=== PATIENT | female | born 1935 | race Caucasian/White ===

== ENCOUNTER 2016-09-26 09:30 | Inpatient (IN) ==
[2016-09-26 11:58] LABS: MANUAL DIFF NEEDED? NO
[2016-09-26 12:03] LABS: BASO% 0.4 % (0.0-0.8); EOS# 0.09 X1000 (0.0-0.7); EOS% 1.3 % (0.0-10.0); HEMATOCRIT 33.2 % (37.0-47.0); HEMOGLOBIN 10.8 g/dL (12.0-16.0); LYMPH# 1.89 X1000 (1.2-3.4); LYMPH% 27.8 % (20.5-51.1); MCHC 32.5 g/dL (33-37); MCV 98.2 FL (81-99); MONO# 0.55 X1000 (0.11-0.59); MONO% 8.1 % (1.7-9.3); MPV 8.9 FL (7.4-10.4); NEUT% 62.4 % (42.2-75.2); PLT 203 X1000 (130-400); RBC 3.38 XMIL (4.2-5.4)
[2016-09-26 12:07] LABS: PROTIME 10.5 Seconds (9.2-11.7); PTT 25.9 Seconds (22.0-36.0)
[2016-09-26 12:19] LABS: HEMOGLOBIN A1C 5.9 % (4.8-6.0)
[2016-09-26 12:43] LABS: CALCIUM 9.5 mg/dL (8.8-10.2)
[2016-09-26] MEDS: NS 1,000 ML IV SCH (14:32)
[2016-09-26] MEDS: PERCOCET-5 PO PRN ×2 (17:10→21:48)
[2016-09-27] MEDS: NS 1,000 ML IV SCH ×2 (04:54→22:23)
[2016-09-27] MEDS: PERCOCET-5 PO PRN (04:54)
[2016-09-27] MEDS ORDERED: VANCOMYCIN IV PER PHARMACY MISC SCH (08:15)
[2016-09-27] MEDS ORDERED: ROBAXIN PO PRN (08:35)
[2016-09-27 08:44] LABS: HEMOGLOBIN 10.3 g/dL (12.0-16.0); MCH 31.6 PG (27-31); MCHC 32.2 g/dL (33-37); MCV 98.2 FL (81-99); MPV 9.4 FL (7.4-10.4); RBC 3.26 XMIL (4.2-5.4)
--- NOTE | 2016-09-27 08:47 | PROGRESS NOTE ---
DATE: 09/27/2016 SUBJECTIVE: Ms. Mccloud is lying in bed this morning. Admitted her yesterday for irrigation and debridement today of this left foot. OBJECTIVE: Left lower extremity exam: Still has erythema all around the great toe. She has puncture site on the plantar aspect of the foot. It is very tender palpation around that area. ASSESSMENT: Left foreign body puncture wound to the forefoot with local cellulitis and possible abscess. PLAN: I plan on taking Mr. Mccloud to the OR today for left foot irrigation and debridement and packing. I went over with her the procedure, risks, benefits, and potential complications. Risks include, but are not limited to, infection, wound healing problems, damage to nerves, arteries, veins, numbness, continued pain, DVT, and discussed with the patient. She expressed understanding and wished to proceed. We will plan on getting this done today, hopefully around noon. She will remain NPO. cc: Edmar Hood MD
[2016-09-27 09:10] LABS: AGAP 11; BUN 23 mg/dL (8-22); CALCIUM 8.7 mg/dL (8.8-10.2); CHLORIDE 104 mmol/L (98-107); COSMO 285; IRON SATURATION 26 %; MAGNESIUM 1.9 mg/dL (1.5-2.7); POTASSIUM 4.3 mmol/L (3.5-5.1); SODIUM 141 mmol/L (136-145); TCO2 26 mmol/L (25-35); TIBC 242 ug/dL; TOTAL IRON 62 ug/dL (49-151); UNBOUND IRON 180 ug/dL (112-346)
--- NOTE | 2016-09-27 09:13 | CONSULTATION ---
DATE OF CONSULTATION: 09/27/2016 CONCLUSION: The patient stepped on a nail a week ago. She stepped on it with her left foot. She was wearing a rubber soled shoe that she had worn previously. She received a tetanus immunization. She has cellulitis of the left foot now. I think there is a possibility that she could have osteomyelitis as well. RECOMMENDATIONS: An x-ray of the foot has been ordered, and I have ordered a triple phase bone scan on the left foot. I plan to treat with a combination of vancomycin and Zosyn. DISCUSSION: The patient a week ago stepped on a nail. As was mentioned above, she was wearing a rubber soled shoe, which she has worn previously. Her foot became progressively more swollen and erythematous. The patient, after she stepped on the nail, had a tetanus booster shot. LABORATORY STUDIES: CBC with a white count of 6800, hemoglobin 10.8, and platelet count 203,000. Creatinine is 0.9. GFR is 60. The patient has an x-ray of the foot ordered, and I have ordered a triple phase bone scan. PAST MEDICAL HISTORY/REVIEW OF SYSTEMS: Eyes and Ears: She denies difficulty hearing or seeing. Neck: No meningismus. Respiratory: No cough or shortness of breath. Cardiac: No chest pain or palpitations. Gastrointestinal: No nausea, vomiting, or diarrhea. Genitourinary: No dysuria or flank pain. Bones, Joints, Muscles: Her left foot now is swollen and erythematous and painful, but she does not have any joints that are swollen, and she has not had any myalgias. Neurologic: No seizures or loss of motor or sensory function. Integument: No rash. Endocrine: The patient is diabetic, and she has hypothyroidism. Hematologic: No history of anemia or bleeding tendency. The remainder of the patient's review of systems was completed and was negative. SHAREPOINT WEB DEVELOPER HISTORY: She is a 3, para 3, AB 0. She has had a hysterectomy and bilateral salpingo-oophorectomy for cancer of the cervix. PREVIOUS HOSPITALIZATIONS AND OPERATIONS: She has had labor and deliveries, a total abdominal hysterectomy with bilateral salpingo-oophorectomy. She has had facial surgery, a laminectomy, and a cholecystectomy. MEDICAL DISEASES: Positive for diabetes mellitus, hypertension, and cancer of the cervix. INFECTIOUS DISEASE HISTORY: Positive for UTI. Negative for pneumonia. FAMILY HISTORY: Positive for diabetes mellitus, hypertension, myocardial infarction, cancer, and 1 member of the patient's family is blind. [place]IAL HISTORY[place] She is allergic to Keflex, manifested by itching, but she tolerates penicillin well. She is . She has cats and dogs for pets. The patient also has tolerated amoxicillin well. HOME MEDICATIONS: Synthroid, amoxicillin, lisinopril/hydrochlorothiazide, calcium, tramadol, metformin, vitamin B12, Robaxin, Zantac, Neurontin, vitamin D, meloxicam, and aspirin. PHYSICAL EXAMINATION: Vital Signs: Temperature is 98.3 degrees, pulse 62, respirations 18, blood pressure 120/60. Patient's weight is listed as 181 pounds. General: This is an obese, elderly female. She is in no acute distress. Head, Eyes, Ears, Nose, and Throat: She can hear my spoken words and see near objects. No drainage noted from the nose or ears. She does not have any white patches in her mouth. Neck: No meningismus. Lungs: Clear to auscultation. Cardiovascular: Regular heart rate. Peripheral pulses are palpable. Abdomen: Soft and nontender. Extremities: The patient's left foot had plantar erythema, swelling, and tenderness. There was no drainage coming from the foot. Neurologic: Patient is awake. She can move her extremities. There is no tremor. Her sensation is intact to touch. Her memory, as regarding her medical condition, is intact. Integument: No rash noted. Please see my description of the patient's foot done earlier. Thank you for the consult. cc: MD Edmar Garcia MD
[2016-09-27 09:16] LABS: HEMOGLOBIN A1C 5.8 % (4.8-6.0)
[2016-09-27 09:22] LABS: FERRITIN 140 ng/mL (13-150)
--- NOTE | 2016-09-27 09:24 | CONSULTATION ---
DATE OF CONSULTATION: 09/27/2016 CONSULTING PHYSICIAN: Dr. Edmar Hood. CONSULTING REGION: Medical management. HISTORY OF PRESENT ILLNESS: Ms. Mccloud is a very pleasant, 81-year-old female with a history of hypertension and diabetes mellitus, who stepped on a nail on September 19. Since that time, she has had worsening pain and swelling of her left foot. She went to her primary care provider who gave her a tetanus shot and oral antibiotics. However, her left foot has continued to swell. She reports chills, but no fever, and no other symptoms. Review of systems did reveal that she reports occasional chest pain, midsternal and nonradiating when she exerts herself. She also has dyspnea with exertion and occasional lower extremity edema. When asked if she has ever had a cardiac evaluation, she reports she has had a negative stress test multiple years ago. She denies any chest pain at rest. Laboratory data done yesterday by orthopedics does not reveal anything acute. Currently her vitals are stable and she is resting in bed without distress noted. PAST MEDICAL HISTORY: 1. Diabetes mellitus type 2. 2. Hypertension. 3. Osteoarthritis. 4. Hypothyroidism. 5. Diverticulosis/diverticulitis and cervical cancer. PAST SURGICAL HISTORY: Cholecystectomy, hysterectomy, lumbar spine fusion, hysterectomy, facial reconstruction. SOCIAL HISTORY: Patient denies tobacco, alcohol or drug use. She is and lives in [place]. FAMILY HISTORY: Noncontributory. REVIEW OF SYSTEMS: A 14 point review of systems was obtained and found to be negative with the exception of the HPI. ALLERGIES: Keflex. HOME MEDICATIONS: 1. Amoxicillin 1000 mg p.o. b.i.d. 2. Aspirin 81 mg daily. 3. Calcium magnesium 1 daily. 4. Vitamin B 12 1000 mcg daily. 5. Vitamin D 2 400 units daily. 6. Neurontin 300 mg p.o. t.i.d. 7. Synthroid 50 mcg daily. 8. Lisinopril/hydrochlorothiazide 10/12.5 one daily. 9. Mobic 7.5 mg at bedtime. 10. Glucophage 500 mg daily. 11. Robaxin 500 mg p.o. t.i.d. as needed. 12. Zantac 150 mg p.o. daily. 13. Ultram 50 mg p.o. q. 6 hours as needed. PHYSICAL EXAMINATION: Vital Signs: Blood pressure is 120/60, heart rate 62, respiratory rate 18, O2 saturation 99% on room air. Temperature is 98.3 degrees. General: Elderly female lying in hospital bed in no acute distress. Neurologic: The patient is awake, alert and oriented. She follows commands without focal deficits. HEENT: Head is atraumatic and normocephalic. Pupils are equal, round, reactive to light. Oral mucosa is moist. Oropharynx is clear. Neck: Supple. Trachea is midline. No JVD. Chest: Clear to auscultation bilaterally. CV: Regular rate and rhythm. S1 and S2 is noted. No murmurs, gallops, clicks , rubs. GI: Soft, nondistended, nontender. Bowel sounds are positive. Extremities: No edema, clubbing or cyanosis. Left foot has a nail insertion site on the plantar surface with edema and erythema just proximal to the great toe. Neurovascular is intact. No drainage. DIAGNOSTIC DATA: Labs done yesterday show a WBC of 6.8, hemoglobin 10.8, hematocrit 33.2, platelet count 203. INR 1. Chemistry reviewed and noncontributory. ASSESSMENT AND PLAN: 1. Left foot cellulitis: The patient is scheduled for incision and drainage later today. Will order a foot x-ray, draw blood cultures and start broad-spectrum antibiotics covering gram- positive and gram-negative organisms. Dr. Kang has also been consulted for antibiotic assistance. We will check a sedimentation rate and CRP. Preoperative evaluation puts her as a low risk for intraoperative cardiac events. However, given her symptoms of angina, we would recommend that she follow up with her primary care provider for further evaluation, such as stress testing and echocardiography or possibly cardiology consultation. 2. Anemia: Will order iron studies and treat accordingly. 3. Diabetes mellitus: Will order a hemoglobin A1c, pattern blood sugar, sliding scale insulin, and hold her metformin. 4. Hypertension: Chronic and stable, continue home medications. 5. Deep vein thrombosis prophylaxis: Would recommend Lovenox 12 hours after surgery. We would like to thank you for this consultation. We will continue to follow along with you. Dictated by DIAMOND Lilly for Daljit Steele MD cc: DIAMOND Lilly MD Melissa C. Gray Addendum: I personally evaluated and examined the patient in conjunction to the ASSISTANT COMMUNITY DIRECTOR and agreed with his assessment and plans. Wound noted. Will continue to follow along with you. HUBER
--- NOTE | 2016-09-27 09:27 | EKG Report ---
Test Performed on : 09/27/2016 08:19:17 AM Test Reason : preop Blood Pressure : / mmHG Vent. Rate : 062 BPM Atrial Rate : 062 BPM P-R Int : 142 ms QRS Dur : 136 ms QT Int : 468 ms P-R-T Axes : 068 032 040 degrees QTc Int : 475 ms Normal sinus rhythm. Left bundle branch block Abnormal ECG No previous ECGs available Confirmed by Ole YEUNG, Jak Yoo ([id number]) on 09/29/2016 9:11:31 AM
[2016-09-27] MEDS: NEURONTIN PO SCH ×3 (10:48→22:23)
[2016-09-27] MEDS: PATIENT'S OWN MED PO SCH (10:49)
--- NOTE | 2016-09-27 10:51 | Diag Imaging Result Doc PS360 ---
EXAM: CHEST-2 VIEWS INDICATION: preop TECHNIQUE: 2 views COMPARISON: None. FINDINGS: The lungs are grossly clear. There is no discrete pleural fluid collection or pneumothorax. The cardiomediastinal silhouette and central vasculature are grossly unremarkable. IMPRESSION: No evidence of acute pathology by plain radiograph. Electronically signed by Cesar Campoverde 09/27/2016 10:48 AM
[2016-09-27] MEDS: ZOSYN 3.375 GM/NS 3.375 GM/50 ML IVPB IV SCH ×2 (10:55→22:23)
[2016-09-27] MEDS ORDERED: VANCOMYCIN 1.2 GM in NS 250 ML IV ONE (11:00)
--- NOTE | 2016-09-27 11:04 | Diag Imaging Result Doc PS360 ---
EXAM: FOOT COMPLETE LEFT INDICATION: infection, stepped on nail TECHNIQUE: 3 views COMPARISON: None. FINDINGS: There is a small enthesophyte at the insertion of the Achilles tendon arising from the calcaneus There is no discrete fracture, dislocation, or significant intrinsic osseous lesion, otherwise. The visualized joint spaces are essentially unremarkable. There are several tiny embedded metallic foreign bodies at the plantar aspect of the forefoot that appears to be underlying the great toe. There is questionable mild soft tissue edema in this region as well. IMPRESSION: A few tiny metallic foreign body fragments at the plantar aspect of the forefoot embedded in the soft tissues as described. Electronically signed by Cesar Campoverde 09/27/2016 11:01 AM
[2016-09-27] MEDS ORDERED: MORPHINE ONE ×2 (13:03→13:20)
[2016-09-27] MEDS ORDERED: DIPRIVAN 1% ONE (13:03)
[2016-09-27] MEDS: MORPHINE ONE ×2 (13:06→13:11)
[2016-09-27] MEDS ORDERED: LR 1,000 ML ONE (13:22)
[2016-09-27] MEDS ORDERED: XYLOCAINE-MPF 2% ONE (13:22)
[2016-09-27] MEDS ORDERED: ZOFRAN ONE (13:22)
[2016-09-27] MEDS ORDERED: ZOFRAN IV PRN (13:30)
[2016-09-27] MEDS ORDERED: PERICOLACE PO PRN (13:30)
--- NOTE | 2016-09-27 13:32 | OPERATIVE NOTE ---
PROCEDURE DATE: 09/27/2016 PREOPERATIVE DIAGNOSIS: Left foot puncture wound with infection and abscess. POSTOPERATIVE DIAGNOSIS: Left foot puncture wound with infection and abscess. PROCEDURE: Left foot irrigation debridement to bone. SURGEON: Dr. Edmar Hood. GREENHOUSE INSTRUCTOR: Janina De La O, Nurse Practitioner. ANESTHESIA: General with LMA. ESTIMATED BLOOD LOSS: 10 mL. Tourniquet was up for about 20 minutes. Cultures taken and sent off to the lab. DISPOSITION: To PACU, hemodynamically stable. INDICATION FOR PROCEDURE: Ms. Gregorio Mccloud is a 81-year-old female, came into the office yesterday with a puncture site abscess shown on MRI and that already failed regular antibiotic treatment, so I ended up admitting her to the hospital. I discussed with her about I and D and she wanted to proceed. DESCRIPTION OF THE PROCEDURE: Ms. Mccloud was identified in the preoperative holding area. The left foot was marked as correct surgical site. She was then wheeled to the operating room and placed supine on the operating table. All bony prominences well padded. She was induced under general anesthesia. LMA was placed. No tourniquet was placed on the leg. Left lower extremities prepped with Betadine solution and draped in normal sterile fashion. Surgical pause was performed. We identified the correct patient, the correct side, the correct procedure. Preop antibiotics were given. Esmarch was used to exsanguinate right at the ankle and none on the foot, and it was used as the tourniquet at the level of the ankle. It was up for around 20 minutes. I made an incision over the puncture site longitudinally. Dissection was carried down. We encountered pus pretty quickly. Also encountered some small metallic debris and got that out of there. I then took cultures that were deep and sent those off to the lab. I then used a curette and curetted that whole area out and there were sort of 2 different areas that probed deep in that 1st web space and that did sort of probe to bone and so I curetted that whole area out and excisionally debrided skin and subcutaneous tissue all the way down to bone with a curette and with my knife, and then there was another area that sort of came under the toe to the medial side and debrided that as well. It did not go as deep there. After I had a very thorough excisional debridement of all the tissue, then was able to irrigate it copiously with normal saline so everything looked very clean. I removed the foreign debris that was there as well. After this, everything looked really clean so I packed it with Iodoform and then 4 x 4s, Sof-Rol and [place] was placed. The patient was then wheeled from general anesthesia, moved to her own bed and taken to the PACU in stable condition. Postoperatively, patient will be nonweightbearing left lower extremity. She will be in the hospital and I will see her in the morning. cc: Edmar Hood MD
[2016-09-27] MEDS: ZANTAC PO SCH (15:27)
[2016-09-27] MEDS: SYNTHROID PO SCH (15:27)
[2016-09-27] MEDS: VITAMIN B-12 PO SCH (15:27)
[2016-09-27] MEDS: VITAMIN D PO SCH (15:28)
[2016-09-27] MEDS ORDERED: BENADRYL LIQUID PO PRN (16:17)
[2016-09-27] MEDS ORDERED: BENADRYL IV PRN (17:02)
[2016-09-27] MEDS: OXY IR PO PRN ×2 (18:59→22:24)
[2016-09-27] MEDS: PERIDEX MT SCH (22:23)
[2016-09-27] MEDS: PRINZIDE 10/12.5MG PO SCH (22:24)
[2016-09-28] MEDS: ZOSYN 3.375 GM/NS 3.375 GM/50 ML IVPB IV SCH ×3 (05:01→17:36)
[2016-09-28] MEDS: OXY IR PO PRN (05:52)
[2016-09-28] MEDS: LOVENOX SUBQ SCH (05:52)
[2016-09-28] MEDS: SYNTHROID PO SCH ×2 (05:53→07:47)
[2016-09-28 06:37] LABS: AGAP 10; BUN 16 mg/dL (8-22); CALCIUM 8.5 mg/dL (8.8-10.2); CHLORIDE 102 mmol/L (98-107); COSMO 279; POTASSIUM 4.7 mmol/L (3.5-5.1); SODIUM 139 mmol/L (136-145); TCO2 27 mmol/L (25-35)
--- NOTE | 2016-09-28 07:06 | PROGRESS NOTE ---
DATE: 09/28/2016 SUBJECTIVE: Ms. Mccloud is lying in bed this morning. Did not rest great last night. Has some pain in the foot. OBJECTIVE: Left lower extremity exam: Dressing has a little bit of bloody drainage on the very bottom. I did take the dressing down just a little bit to loosen it. It seemed just a little bit tighter on the toes and she said that did feel a little bit better. Still just a little bit of erythema to that big toe. Packing and everything is still in place. ASSESSMENT: Status post left foot irrigation and debridement. PLAN: We will plan on a dressing change on Ms. Mccloud tomorrow. We will repack that wound. Will wait on Dr. Kang' final recommendations for antibiotic treatment. Once that is done, we then can work on discharge. cc: Edmar Hood MD
[2016-09-28] MEDS: NS 1,000 ML IV SCH ×3 (07:46→21:59)
[2016-09-28] MEDS: NEURONTIN PO SCH ×3 (08:27→21:59)
[2016-09-28] MEDS: PATIENT'S OWN MED PO SCH (08:27)
[2016-09-28] MEDS: VITAMIN D PO SCH (08:27)
[2016-09-28] MEDS: PERIDEX MT SCH ×2 (08:27→21:59)
[2016-09-28] MEDS: ZANTAC PO SCH (08:27)
[2016-09-28] MEDS: VITAMIN B-12 PO SCH (08:27)
[2016-09-28] MEDS ORDERED: VANCOMYCIN 1 GM/NS 1 GM/250 ML IVPB IV SCH (11:00)
--- NOTE | 2016-09-28 13:44 | PROGRESS NOTE ---
DATE: 09/28/2016 PRESENT ILLNESS: The patient has infection of the left foot which she incurred by stepping on a nail that went through the rubber sole of her shoe. A culture from surgery is growing a gram- negative yossi. Also, I read in Dr. Hood's operative note that he probed the wound and it went to bone. Therefore, the patient has by definition osteomyelitis. MEDICATIONS: The patient currently is on a combination of vancomycin and Zosyn. This is day 1 of antibiotic therapy following surgery on the foot. PHYSICAL EXAMINATION: Vital Signs: Temperature is 98.2, pulse 73, respirations 16. Blood pressure 140/62. Generally: This is a healthy-appearing elderly female. She is in no acute distress. Lungs: Clear to auscultation. Cardiovascular: Regular heart rate. Abdomen: Soft and nontender. Extremities: The left foot had a dressing around it. The dressing is intact. LAB AND X-RAY: There is no new x-ray for today. The patient's CBC for today showed a white count of 4560, hemoglobin 10.3, and platelet count 196,000. Creatinine is 0.8. GFR is greater than 60. A culture taken from the foot as mentioned above, is growing a gram-negative yossi. ASSESSMENT AND PLAN: By definition patient does have osteomyelitis of the left foot. I am going to continue Zosyn pending the final identification of the organism, and I have discontinued vancomycin. My plan would be to treat the patient with most likely intravenous antibiotics for a 6 week period. COMORBIDITIES: Includes that she has diabetes mellitus. She also stepped on a nail that went through the shoe she was wearing which she had worn in the past. cc: MD Edmar Garcia MD
--- NOTE | 2016-09-28 14:07 | PROGRESS NOTE ---
DATE: 09/28/2016 SUBJECTIVE: The patient is feeling better although she said her pain is not very well controlled. Nursing staff reported the patient is very drowsy when they give her the oral pain medications. PHYSICAL EXAMINATION: Vital signs: Blood pressure 140/62, pulse of 73, respirations 16, temperature 98.2 degrees, sat of 97% on 2 L nasal cannula. General appearance: Elderly white female in moderate distress due to pain. HEENT: Anicteric. Clear conjunctivae. Neck: Supple. No JVD. No bruits. Cardiovascular: S1 and S2. Normal rate and rhythm. No murmur, rubs, or gallops. Pulmonary: Clear to auscultation bilaterally. GI: Soft, nontender, nondistended. Normoactive bowel sounds. Musculoskeletal: No clubbing, cyanosis, or edema. Dressing on the left foot noted. LABORATORY: White count was 4.56, hemoglobin 10.3, hematocrit of 32.0, platelets 196,000. Chemistry: Sodium 139, potassium 4.7, chloride 102, bicarb 27, BUN 16, creatinine 0.8, glucose of 110. Culture from the left grew out gram-negative yossi. ASSESSMENT AND PLAN: This is a 81-year-old white female, stable and now admitted to the hospital for cellulitis and wound debridement. 1. Cellulitis. The patient she is on broad-spectrum antibiotics. ID is following. Orthopedics has debrided her wound and removed some foreign substances. Will continue to get her pain under control. The patient thinks that oxycodone makes her very drowsy. We will hold her oxycodone and put her on a low dose of [place] instead. 2. Hypertension. Continue Zestoretic. 3. Hypothyroidism. Continue Synthroid. 4. Peripheral neuropathy. Continue Neurontin. 5. GERD. Continue Zantac. CODE STATUS: Patient is a full code. cc: Edmar Hood MD
[2016-09-28] MEDS: PRINZIDE 10/12.5MG PO SCH (21:59)
[2016-09-29] MEDS: ZOSYN 3.375 GM/NS 3.375 GM/50 ML IVPB IV SCH ×2 (00:57→05:55)
[2016-09-29 05:41] LABS: MANUAL DIFF NEEDED? NO
[2016-09-29 05:52] LABS: BASO% 0.6 % (0.0-0.8); EOS# 0.15 X1000 (0.0-0.7); EOS% 2.9 % (0.0-10.0); HEMATOCRIT 31.1 % (37.0-47.0); HEMOGLOBIN 9.9 g/dL (12.0-16.0); LYMPH# 1.54 X1000 (1.2-3.4); LYMPH% 30.2 % (20.5-51.1); MCHC 31.8 g/dL (33-37); MCV 97.5 FL (81-99); MONO# 0.47 X1000 (0.11-0.59); MONO% 9.2 % (1.7-9.3); MPV 9.1 FL (7.4-10.4); NEUT% 57.1 % (42.2-75.2); PLT 195 X1000 (130-400); RBC 3.19 XMIL (4.2-5.4)
[2016-09-29] MEDS: LOVENOX SUBQ SCH (05:55)
[2016-09-29] MEDS: SYNTHROID PO SCH ×2 (05:55→07:52)
[2016-09-29] MEDS: NORCO-5 PO PRN ×2 (05:58→22:41)
[2016-09-29 06:14] LABS: AGAP 10; BUN 13 mg/dL (8-22); CALCIUM 8.9 mg/dL (8.8-10.2); CHLORIDE 106 mmol/L (98-107); COSMO 285; POTASSIUM 4.2 mmol/L (3.5-5.1); SODIUM 143 mmol/L (136-145); TCO2 27 mmol/L (25-35)
[2016-09-29] MEDS: ZANTAC PO SCH (08:15)
[2016-09-29] MEDS: PERIDEX MT SCH ×2 (08:15→22:41)
[2016-09-29] MEDS: NEURONTIN PO SCH ×3 (08:15→22:41)
[2016-09-29] MEDS: VITAMIN B-12 PO SCH (08:15)
[2016-09-29] MEDS: PATIENT'S OWN MED PO SCH (08:19)
[2016-09-29] MEDS: VITAMIN D PO SCH (08:19)
--- NOTE | 2016-09-29 08:26 | PROGRESS NOTE ---
DATE: 09/29/2016 SUBJECTIVE DATA: Ms. Mccloud states she is not feeling too well this morning. Says she is having burning and frequency with urination. As for the foot, she says it is not bothering her too much. OBJECTIVE DATA: Extremities: Exam of the left lower extremity, her dressing is clean, dry, and intact. There is no erythema surrounding the area. She denies any pain. Vital Signs: Temp is 98.2 degrees, pulse is 69, respirations are 18, and blood pressure is 113/42, she is 94% on room air. ASSESSMENT: Left foot puncture wound with infection and abscess. PLAN: Dr. Hood performed an I and D yesterday of the left foot puncture wound. Today, we will repack her wound with iodoform gauze. We are still awaiting the pending results of the cultures and the antibiotics will be continued per Dr. Kang. Dictated by DIAMOND Robles for Edmar Hood MD cc: DIAMOND Robles MD
[2016-09-29] MEDS: LEVAQUIN PO SCH (11:18)
--- NOTE | 2016-09-29 11:25 | PROGRESS NOTE ---
DATE: 09/29/2016 PRESENT ILLNESS: The patient has an infection of her left foot, which she incurred by stepping on a nail that went through the rubber sole of her shoe. The infection does involve the bone. The organism has been identified as Escherichia coli. MEDICATIONS: The patient was on Zosyn. Today, I was switched her to Levaquin 500 mg p.o. daily. PHYSICAL EXAMINATION: Vital Signs: Temperature is 98.2 degrees, pulse 69, respirations 18, blood pressure 113/42. General: This is a healthy-appearing, elderly female. She is in no acute distress. Lungs: Clear to auscultation. Cardiovascular: Regular heart rate. Abdomen: Soft and nontender. Extremities: The patient's left foot dressing is intact. LABORATORY AND X-RAY: The culture from the patient's foot, as mentioned above, grew Escherichia coli. The patient's CBC shows a white count of 5100, hemoglobin 9.9, and platelet count of 195,000. Creatinine is 0.7. GFR is greater than 60. ASSESSMENT AND PLAN: As mentioned above, the patient has osteomyelitis of the left foot. I plan to treat her with Levaquin 500 mg p.o. daily for 6 weeks. The prescription for her Levaquin has been transmitted electronically to the pharmacy that she uses. COMORBIDITIES: Diabetes mellitus and also that she stepped on a nail that went through her shoe with a rubber sole that she had worn before. cc: MD Edmar Garcia MD
--- NOTE | 2016-09-29 11:52 | PROGRESS NOTE ---
DATE: 09/29/2016 SUBJECTIVE: The patient is feeling better. Still having cellulitis on the left foot but is not as painful like it was yesterday. No fever no chills. No nausea, vomiting, or diarrhea. OBJECTIVE: Vital Signs: Blood pressure 113/42, pulse of 69, respiration 18, temperature 98.2 degrees, saturations of 96% on 2 L nasal cannula. General Appearance: Well-developed, well- nourished white female in no acute distress. HEENT: Anicteric. Clear conjunctivae. Neck: Supple. No JVD. No bruit. Cardiovascular: S1, S2. Normal rate and rhythm. No murmur, rubs, or gallops. Pulmonary: Clear to auscultation bilaterally. GI: Soft, nontender, nondistended. Normoactive bowel sounds Musculoskeletal: No clubbing, cyanosis, or edema. LABORATORY: White count 5.1, hemoglobin 9.9, hematocrit of 31.1, platelets of 195,000. Chemistry 143, potassium 4.2, chloride 106, bicarb 27, BUN 13, creatinine 0.7, glucose 105. ASSESSMENT AND PLAN: A 81-year-old white female, stepped on a nail on her left foot admitted for cellulitis. 1. Left foot cellulitis, status post I D by Orthopedics. Dr. Hood is planning to discharge her over the weekend. Culture grew out Escherichia coli. Dr. Kang aware. She is back on Levaquin because of the deepness of the nail. We treated the patient as if she is having osteomyelitis by definition. 2. Hypothyroidism, continue Synthroid. 3. Hypertension. Continue Zestoretic. 4. Gastroesophageal reflux disease, continue Zantac. 5. Deep venous thrombosis for prophylaxis. The patient on Lovenox. CODE STATUS: The patient is a full code. cc: Edmar Hood MD
[2016-09-29] MEDS: MORPHINE IV PRN (12:30)
[2016-09-29] MEDS: NS 1,000 ML IV SCH (13:45)
[2016-09-29] MEDS: PRINZIDE 10/12.5MG PO SCH (22:41)
[2016-09-30 06:33] LABS: MANUAL DIFF NEEDED? NO
[2016-09-30 06:39] LABS: BASO% 0.6 % (0.0-0.8); EOS# 0.24 X1000 (0.0-0.7); EOS% 4.7 % (0.0-10.0); HEMATOCRIT 32.2 % (37.0-47.0); HEMOGLOBIN 10.2 g/dL (12.0-16.0); LYMPH% 35.2 % (20.5-51.1); MCH 30.9 PG (27-31); MCHC 31.7 g/dL (33-37); MCV 97.6 FL (81-99); MONO# 0.43 X1000 (0.11-0.59); MONO% 8.4 % (1.7-9.3); MPV 9.2 FL (7.4-10.4); NEUT% 51.1 % (42.2-75.2); PLT 207 X1000 (130-400)
[2016-09-30] MEDS: SYNTHROID PO SCH (06:54)
[2016-09-30] MEDS: LOVENOX SUBQ SCH (06:54)
[2016-09-30 07:02] LABS: AGAP 10; BUN 15 mg/dL (8-22); CALCIUM 9.2 mg/dL (8.8-10.2); CHLORIDE 103 mmol/L (98-107); COSMO 284; POTASSIUM 4.8 mmol/L (3.5-5.1); SODIUM 142 mmol/L (136-145); TCO2 29 mmol/L (25-35)
--- NOTE | 2016-09-30 09:59 | PROGRESS NOTE ---
DATE: 09/30/2016 SUBJECTIVE: Ms. Mccloud is lying in bed this morning, feeling well. OBJECTIVE: Right lower extremity exam: Dressing is clean, dry, and intact. Not really any tenderness to palpation around the foot as much and does not seem as much erythema to the great toe. ASSESSMENT: Status post right forefoot irrigation and debridement. PLAN: Ms. Mccloud's wound was packed yesterday. We will keep that in over the weekend and will change the dressings and everything on Sunday. We will get final recommendations from Infectious Disease at that point. cc: Edmar Hood MD
[2016-09-30] MEDS ORDERED: TUCKS PADS TOP PRN (10:05)
[2016-09-30] MEDS ORDERED: TUCKS PADS TOP ONE (10:05)
[2016-09-30] MEDS: PERIDEX MT SCH ×2 (10:49→21:37)
[2016-09-30] MEDS: ZANTAC PO SCH (10:49)
[2016-09-30] MEDS: VITAMIN D PO SCH (10:49)
[2016-09-30] MEDS: VITAMIN B-12 PO SCH (10:49)
[2016-09-30] MEDS: NEURONTIN PO SCH ×3 (10:49→21:37)
[2016-09-30] MEDS: LEVAQUIN PO SCH (10:49)
[2016-09-30] MEDS: PATIENT'S OWN MED PO SCH (10:50)
[2016-09-30] MEDS: NS 1,000 ML IV SCH ×2 (11:58→14:05)
--- NOTE | 2016-09-30 13:59 | PROGRESS NOTE ---
DATE: 09/30/2016 SUBJECTIVE: The patient is feeling well. Still having some soreness on her left great toes but otherwise pain is adequately controlled. No fever. No chills. No nausea, vomiting, or diarrhea. OBJECTIVE: Vital signs: Blood pressure 138/48, pulse of 74, respirations 18, temperature 98.2 degrees, sat of 92% on room air. General appearance: Well-developed, well-nourished white female in no acute distress. HEENT: Anicteric. Clear conjunctivae. Neck: Supple. No JVD. No bruit. Cardiovascular: S1, S2. Normal rate and rhythm. No murmur, rubs, or gallops. Pulmonary: Clear to auscultation bilaterally. GI: Soft, nontender, nondistended. Normoactive bowel sounds. Musculoskeletal: No clubbing, cyanosis, or edema. LABORATORY: White count 5.11, hemoglobin 10.2, hematocrit 32.2, platelets of 207,000. Chemistry: Sodium 142, potassium 4.8, chloride 103, bicarb 29, BUN 15, creatinine 0.7, glucose of 91. ASSESSMENT AND PLAN: 1. This is a 81-year-old white female, stepped on a nail on her left foot status post I and D by Orthopedics. 2. Cellulitis and injury to the great left toe. Culture grew out E. coli. The patient is on Levaquin. ID is following. Orthopedics want to keep the patient until Sunday before discharging the patient. 3. Hypertension. We will consist continue Zestoretic. 4. Hyperparathyroidism. Continue Synthroid. 5. We will continue pain control. 6. DVT prophylaxis. We will continue Lovenox. CODE STATUS: The patient is a full code. We will continue to follow along with you. cc: Edmar Hood MD
[2016-09-30] MEDS: MORPHINE IV PRN ×2 (18:25→18:30)
[2016-09-30] MEDS: PRINZIDE 10/12.5MG PO SCH (21:37)
[2016-10-01] MEDS: LOVENOX SUBQ SCH (06:09)
[2016-10-01] MEDS: SYNTHROID PO SCH (06:09)
[2016-10-01 06:10] LABS: MANUAL DIFF NEEDED? NO
[2016-10-01 07:07] LABS: AGAP 11; BUN 16 mg/dL (8-22); CALCIUM 9.2 mg/dL (8.8-10.2); CHLORIDE 105 mmol/L (98-107); COSMO 288; POTASSIUM 4.1 mmol/L (3.5-5.1); SODIUM 144 mmol/L (136-145); TCO2 28 mmol/L (25-35)
[2016-10-01 07:20] LABS: BASO% 0.9 % (0.0-0.8); EOS# 0.23 X1000 (0.0-0.7); EOS% 4.3 % (0.0-10.0); HEMATOCRIT 33.5 % (37.0-47.0); HEMOGLOBIN 10.8 g/dL (12.0-16.0); LYMPH# 1.66 X1000 (1.2-3.4); MCH 31.3 PG (27-31); MCHC 32.2 g/dL (33-37); MCV 97.1 FL (81-99); MONO# 0.43 X1000 (0.11-0.59); MPV 9.5 FL (7.4-10.4); NEUT% 55.8 % (42.2-75.2); PLT 234 X1000 (130-400); RBC 3.45 XMIL (4.2-5.4)
--- NOTE | 2016-10-01 08:12 | PROGRESS NOTE ---
DATE: 10/01/2016 SUBJECTIVE: Ms. Mccloud is lying in bed this morning. She had a good night's rest last night and is feeling a lot better. OBJECTIVE: Left Lower Extremity Examination: Dressing is clean, dry, and intact. She is able to move the toes well. I do not see any erythema to the great toe at all. There is no drainage on her dressing. ASSESSMENT: Status post irrigation and debridement of left puncture wound to the foot. PLAN: Plan is to try to get Ms. Mccloud out tomorrow. We will change her dressing tomorrow as well. Then I will see her in the Wound Center this next . cc: Edmar Hood MD
[2016-10-01] MEDS: NEURONTIN PO SCH ×3 (09:19→21:41)
[2016-10-01] MEDS: VITAMIN D PO SCH (09:19)
[2016-10-01] MEDS: LEVAQUIN PO SCH (09:19)
[2016-10-01] MEDS: VITAMIN B-12 PO SCH (09:19)
[2016-10-01] MEDS: PERIDEX MT SCH ×2 (09:19→21:41)
[2016-10-01] MEDS: ZANTAC PO SCH (09:19)
--- NOTE | 2016-10-01 10:31 | PROGRESS NOTE ---
DATE: 10/01/2016 SUBJECTIVE: The patient is feeling well. Her pain was better controlled. She stated that orthopedics wanted to take her to the OR tomorrow to do a washout before considering sending her home. PHYSICAL EXAMINATION: Vital Signs: Blood pressure 118/53, pulse of 83, respirations 20, temperature of 98.3 degrees, saturation of 96% on room air. General Appearance: Well-developed, well-nourished, pleasant, white female in no acute distress. HEENT: Anicteric sclerae. Clear conjunctivae. Neck: Supple. No JVD. No bruit. Cardiovascular: S1 and S2. Normal rate and rhythm. No murmur, rubs, or gallops. Pulmonary: Clear to auscultation bilaterally. GI: Soft, nontender, nondistended. Normoactive bowel sounds. Musculoskeletal: No clubbing, cyanosis, or edema. Has still a left foot wound with dressing in place. ASSESSMENT AND PLAN: This is a 81-year-old, white female admitted to the hospital after she stepped on a nail, puncturing her left foot at the base of her great toe. Status post incision and drainage. The wound was tracking to the bones, by definition is osteomyelitis. 1. Escherichia coli osteomyelitis. Infectious disease is following. Dr. Kang plans to treat the patient for 6 weeks of antibiotics. The patient is on Levaquin. Orthopedics wants to take her back to the operating room tomorrow for the washout again and perhaps she can go home from there after the procedure if able. 2. Hypertension. Continue Zestoretic. 3. Peripheral neuropathy. Continue Neurontin. 4. Constipation. Continue Senokot. 5. Deep vein thrombosis prophylaxis. Put the patient on Lovenox. 6. Pain control, on Drifting. cc: Edmar Hood MD
[2016-10-01] MEDS: PATIENT'S OWN MED PO SCH (17:00)
[2016-10-01] MEDS: NS 1,000 ML IV SCH (17:01)
[2016-10-01] MEDS: NORCO-5 PO PRN (21:41)
[2016-10-01] MEDS: PRINZIDE 10/12.5MG PO SCH (21:41)
[2016-10-02] MEDS: LOVENOX SUBQ SCH (06:10)
[2016-10-02] MEDS: SYNTHROID PO SCH (06:11)
[2016-10-02 06:19] LABS: MANUAL DIFF NEEDED? NO
[2016-10-02 06:40] LABS: BASO% 0.8 % (0.0-0.8); EOS# 0.15 X1000 (0.0-0.7); HEMATOCRIT 32.9 % (37.0-47.0); HEMOGLOBIN 10.7 g/dL (12.0-16.0); LYMPH# 1.84 X1000 (1.2-3.4); LYMPH% 36.7 % (20.5-51.1); MCH 31.6 PG (27-31); MCHC 32.5 g/dL (33-37); MCV 97.1 FL (81-99); MONO# 0.44 X1000 (0.11-0.59); MONO% 8.8 % (1.7-9.3); MPV 9.3 FL (7.4-10.4); NEUT% 50.7 % (42.2-75.2); PLT 246 X1000 (130-400); RBC 3.39 XMIL (4.2-5.4)
[2016-10-02 06:48] LABS: AGAP 8; BUN 16 mg/dL (8-22); CALCIUM 9.2 mg/dL (8.8-10.2); CHLORIDE 105 mmol/L (98-107); COSMO 286; POTASSIUM 3.9 mmol/L (3.5-5.1); SODIUM 143 mmol/L (136-145); TCO2 30 mmol/L (25-35)
[2016-10-02] MEDS: ZANTAC PO SCH (08:03)
[2016-10-02] MEDS: VITAMIN D PO SCH (08:03)
[2016-10-02] MEDS: NEURONTIN PO SCH (08:03)
[2016-10-02] MEDS: PERIDEX MT SCH (08:03)
[2016-10-02] MEDS: LEVAQUIN PO SCH (08:03)
[2016-10-02] MEDS: VITAMIN B-12 PO SCH (08:03)
[2016-10-02] MEDS: PATIENT'S OWN MED PO SCH (08:04)
--- NOTE | 2016-10-02 08:31 | PROGRESS NOTE ---
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 MEDICATIONS: The patient has been on Levaquin. I started that yesterday. PHYSICAL EXAMINATION: Vital Signs: Temperature is 98.1 degrees, pulse 67, respirations 16, blood pressure 130/50. Generally: This is a healthy-appearing, elderly female who is in no acute distress. Cardiovascular: Heart rate is regular. Lungs: Clear to auscultation. Abdomen: Soft and nontender. Extremities: I removed the dressing from the patient's left foot. The foot is less swollen and erythematous than it had been. It still is somewhat tender and it is more warm than the same area on the right foot. LAB AND X-RAY: Blood cultures are negative. Culture from the patient's foot grew Escherichia coli. Creatinine 0.8. The CBC shows a white count of 5020, hemoglobin 10.7, and platelet count 246,000. ASSESSMENT AND PLAN: Patient has Escherichia coli osteomyelitis of the foot. My plan is to treat her with Levaquin orally for 6 weeks. I have electronically sent the patient's prescription to the pharmacy that she uses. COMORBIDITIES: She has diabetes mellitus and unfortunately she stepped on a nail that went through her shoe into the foot. cc: MD Edmar Garcia MD
[2016-10-02 11:12] VITALS: BP 136/62
--- NOTE | 2016-10-02 11:46 | PROGRESS NOTE ---
DATE: 10/02/2016 SUBJECTIVE: Ms. Mccloud lying in bed. Pain seems better. OBJECTIVE: Left lower extremity exam, I took the dressing down and took the packing out and then I repacked the wound today with the iodoform. It was fairly painful for her but she tolerated it well. No complications. Erythema is decreasing, there is no drainage out of the wound. ASSESSMENT: Status post irrigation and debridement, left puncture site. PLAN: Ms. Mccloud is going to be discharged home today. She is going to go home on Levaquin and I will see her back in the Wound Center this . cc: Edmar Hood MD
[2016-10-02] MEDS: NS 1,000 ML IV SCH (12:23)
--- NOTE | 2016-10-03 10:53 | DISCHARGE SUMMARY ---
ADMISSION DATE: 09/26/2016 DISCHARGE DATE: 10/02/2016 CONSULTATIONS: Dr. Ernesto Kang with infectious disease. ATTENDING PHYSICIAN: Dr. Edmar Hood with orthopedics. PERTINENT PROCEDURES: Left foot irrigation and debridement to bone, performed by Dr. Hood. DISCHARGE DIAGNOSES: 1. Escherichia coli osteomyelitis of the foot. 2. Status post irrigation and debridement to the bone by Dr. Hood. She will continue on p.o. Levaquin per Dr. Ernesto Kang and Dr. Hood will see her back in the wound clinic this . The patient did have a dressing change today performed by Dr. Hood, where he repacked the wound with iodoform. Stable. 3. Hypertension. Continue home medications. 4. Peripheral neuropathy. Continue Neurontin. 5. Constipation. Continue bowel regimen. 6. Pain control. Continue [place]. HOSPITAL COURSE: Ms. Mccloud is a 81-year-old female with a history of hypertension, diabetes, osteoarthritis, hypothyroidism, diverticulosis, diverticulitis, as well as cervical cancer. Reported to the ED after she stepped on a nail on September 19. Since that time she has had worsening pain and swelling of her left foot. She went to her PCP who gave her a tetanus shot and oral antibiotics. However, her left foot continued to swell. She did report chills but no fever. The patient was admitted for left foot cellulitis. She underwent I D with Dr. Hood to the bone. She was started on broad-spectrum antibiotics with a consult for infectious disease. The patient's wound culture did grow out E. coli. Dr. Kang' plan is to treat the patient with Levaquin daily for 6 weeks. She underwent dressing changes while in the hospital with Dr. Hood. The final 1 was on the day of her discharge, where he took the dressing down, took the packing out, and then repacked the wound with iodoform. Per Dr. Hood the erythema is decreasing and there was no drainage out of the wound. He also approves her discharge home today and follow back up with him in the wound clinic on . VITAL SIGNS: At time of her discharge, temperature is 98.1 degrees, heart rate 67, respirations 16, blood pressure 130/50, O2 is 99% on room air. DISCHARGE DIET: Diabetic. DISCHARGE MEDICATIONS: 1. Aspirin 81 mg p.o. daily. 2. Antacid gel capsule 1 capsule p.o. daily. 3. Vitamin B12 1000 mcg p.o. daily. 4. Vitamin D 400 units p.o. daily. 5. Neurontin 300 mg p.o. t.i.d. 6. Levaquin 500 mg p.o. daily. 7. Synthroid 50 mcg p.o. daily. 8. Lisinopril hydrochlorothiazide 10/12.5 mg tablet p.o. at bedtime. 9. Meloxicam 7.5 mg p.o. at bedtime. 10. Glucophage 500 mg p.o. daily. 11. Robaxin 500 mg p.o. t.i.d. p.r.n. 12. Zantac 150 mg p.o. daily. 13. Ultram 50 mg p.o. q.6 hours p.r.n. FOLLOW-UP: The patient is being discharged home with home health. She will follow up with Dr. Hood this in the wound clinic. She will also follow up with Dr. Ernesto Kang in 3 weeks, as well as her primary care provider, Pam Ross. The patient can return to the ED for any worsening of symptoms. DISCHARGE TIME: 30 minutes. Dictated by DIAMOND Mathias for Preston Silverio MD cc: MD Edmar Patino MD Melissa C. Gray
== END 2016-10-02 14:26 | disposition home health service (06) ==
LOC: DIRADM 09:30 → SUATTDRO 09:30 → 4N 10:09
PROVIDERS: ADMIT Orthopaedic Surgery; ATTEND Internal Medicine